=== PATIENT | female | born 1995 ===

== ENCOUNTER → 2022-04-18 11:02 | Outpatient (CLI) | payer OTHER, SELFPAY ==
--- NOTE | 2022-04-18 11:08 | DI.RAD.S_ITS ---
PROCEDURE: XR LUMBAR SPINE 2-3V INDICATIONS: back pain w/sciatica, r/o fracture or herniation TECHNIQUE: Three views of the lumbar spine were acquired. COMPARISON: None. FINDINGS: Bones: Five [id number] vertebrae are present. Trace retrolisthesis L4 on five and subtle levoscoliosis of the lumbar spine. No vertebral body compression fractures. No suspicious bony lesions. Soft tissues: Overlying bowel gas pattern is normal. No suspicious soft tissue calcifications. IMPRESSION: 1. Trace retrolisthesis L4-5 and trace levoscoliosis. Dictated by: Kathia Everett M.D. on 04/18/2022 at 14:04 Approved by: Kathia Everett M.D. on 04/18/2022 at 14:05
--- NOTE | 2022-04-18 11:08 | DI.RAD.S_ITS ---
PROCEDURE: XR PELVIS 1-2V INDICATIONS: back pain w/sciatica, r/o fracture or herniation... TECHNIQUE: 1 view(s) of the pelvis acquired. COMPARISON: None. FINDINGS: Bones: No fractures or dislocations. No suspicious bony lesions. Soft tissues: Visualized bowel gas pattern is normal. No suspicious soft tissue calcifications. IMPRESSION: No osseous lesion. If symptoms and/or clinical suspicion for pathology persists, further assessment with repeat radiographs (7-10 days) or advanced imaging (e.g. CT, MRI or bone scan) should be considered. Dictated by: Kylah Girard MD, PhD on 04/18/2022 at 12:11 Approved by: Kylah Girard MD, PhD on 04/18/2022 at 12:11
== END ==
PROVIDERS: Referring Provider Chiropractor; Visit Provider Chiropractor
DX: M54.32 Sciatica, left side (principal); S39.012A Strain of muscle, fascia and tendon of lower back, initial encounter; M99.03 Segmental and somatic dysfunction of lumbar region; M99.04 Segmental and somatic dysfunction of sacral region; M99.05 Segmental and somatic dysfunction of pelvic region; M62.830 Muscle spasm of back; X58.XXXA Exposure to other specified factors, initial encounter
CPT/HCPCS: 72100; 72170